=== PATIENT | male | born 2000 | race African-American/Black ===

== ENCOUNTER 2023-09-15 07:25 | Emergency (ER) | payer MEDICAID ==
[~2023-09-15] VITALS: Ht 190.5 cm; Wt 127.0 kg
[2023-09-15 07:33] VITALS: BP 164/85; PULSE 102; RESP 20; TEMP 98.2; O2SAT 96
[2023-09-15] MEDS ORDERED: PREDNISONE 20MG TABLET PO ONE (09:45)
[2023-09-15] MEDS ORDERED: DIPHENHYDRAMINE 50MG CAPSULE PO ONE (09:45)
[2023-09-15] MEDS: DIPHENHYDRAMINE 25MG CAPSULE PO NR ×3 (10:40→10:44)
[2023-09-15 10:52] LABS: CLARITY URINE CLEAR (CLEAR); COLOR URINE YELLOW (YELLOW); GLUCOSE URINE NEGATIVE (NEGATIVE); KETONES URINE 4+ (NEGATIVE); LEUKOCYTE ESTERASE URINE NEGATIVE (NEGATIVE); NITRITE URINE NEGATIVE (NEGATIVE); OCCULT BLOOD URINE NEGATIVE (NEGATIVE); PH URINE 5.5 (4.5-8.0); PROTEIN URINE NEGATIVE (NEGATIVE); SPECIFIC GRAVITY URINE 1.026 (1.005-1.030)
[2023-09-15 11:36] LABS: BASOPHILS % 0.1 % (0.0-2.0); EOSINOPHILS % 0.3 % (0.0-5.0); HEMATOCRIT. 46.5 % (42.0-52.0); HEMOGLOBIN. 15.4 g/dL (14.0-18.0); LYMPHOCYTES % 25.8 % (20.0-50.0); MEAN CORPUSCULAR HEMOGLOBIN 30.7 pg (28.0-32.0); MEAN CORPUSCULAR HGB CONC 33.2 g/dL (31.0-37.0); MEAN CORPUSCULAR VOLUME 92.5 fL (80.0-94.0); MEAN PLATELET VOLUME 10.2 fl (7.4-10.4); MONOCYTES % 5.2 % (2.0-8.0); NEUTROPHILS % 68.6 % (40.0-76.0); PLATELET 254 x1000/uL (130-400); RED BLOOD CELL COUNT 5.03 mill/uL (4.7-6.1); RED CELL DISTRIBUTION WIDTH 14.3 % (11.6-14.6); WHITE BLOOD COUNT 6.5 x1000/uL (4.5-11.0)
[2023-09-15 13:33] LABS: CARBON DIOXIDE 21 mEq/L (21-32); CHLORIDE 102 mEq/L (98-107); CREATININE 0.9 mg/dL (0.6-1.3); GLUCOSE 78 mg/dL (70-105); POTASSIUM 4.2 mEq/L (3.5-5.1); SODIUM 132 mEq/L (136-145); UREA NITROGEN BLOOD 14 mg/dL (9-23)
[2023-09-15 13:34] LABS: ALBUMIN 4.7 g/dL (3.2-4.8); ASPARTATE AMINOTRANSFERASE 23 IU/L (<34); CALCIUM 9.7 mg/dL (8.7-10.4); PROTEIN TOTAL 8.6 g/dL (6.0-8.3)
[2023-09-15 13:35] LABS: ALANINE AMINOTRANSFERASE 31 IU/L (10-49)
[2023-09-15] MEDS ORDERED: B50 MT (13:48)
[2023-09-15] MEDS ORDERED: P50 MT (13:48)
[2023-09-15 15:21] LABS: BILIRUBIN TOTAL 0.5 mg/dL (0.1-1.0); CREATINE KINASE 132 IU/L (46-171)
== END 2023-09-15 13:58 | disposition home or self-care (01) ==
LOC: ER 07:25
DX: T78.40XA Allergy, unspecified, initial encounter (principal); X58.XXXA Exposure to other specified factors, initial encounter
CPT/HCPCS: 99283; 80053; 81003; 82550; 85025; 36415; Q0163; J7512

== ENCOUNTER 2023-12-24 06:48 | Emergency (ER) | payer MEDICAID ==
[~2023-12-24] VITALS: Ht 190.5 cm; Wt 126.0 kg
[~2023-12-24 06:48] MED LIST: B50 MT; P50 MT
[2023-12-24 07:02] VITALS: O2SAT 99
[2023-12-24 10:00] VITALS: BP 121/88; PULSE 89; RESP 17; TEMP 98.5
[2023-12-24] MEDS ORDERED: AMOX1TAB16 MT (10:01)
[2023-12-24] MEDS ORDERED: IBUP-2028 MT (10:02)
== END 2023-12-24 10:57 | disposition home or self-care (01) ==
LOC: ER 06:48
DX: H92.01 Otalgia, right ear (principal)
CPT/HCPCS: 99283